=== PATIENT | female | born 1985 | race Caucasian/White ===

== ENCOUNTER → 2025-01-22 10:51 | Outpatient (CLI) | payer BC, SELFPAY ==
--- NOTE | 2025-01-22 10:54 | DI.RAD.S_ITS ---
PROCEDURE: XR TOE LT MIN 2V INDICATIONS: Rule out fracture TECHNIQUE: 4 views of the 5th toe(s) acquired. COMPARISON: None. FINDINGS: Bones: Acute oblique fracture involving distal shaft of 5th proximal phalanx with minimal lateral displacement at fracture site. No other fracture or dislocation. Soft tissues: No suspicious soft tissue densities. IMPRESSION: Acute minimally displaced oblique fracture involving distal shaft of 5th proximal phalanx. Dictated by: Owen Anand M.D. on 01/22/2025 at 12:04 Approved by: Owen Anand M.D. on 01/22/2025 at 12:05
== END ==
LOC: RAD 10:53
PROVIDERS: PCP Family Medicine; Referring Provider Family Medicine; Visit Provider Chiropractor
DX: S92.515A Nondisplaced fracture of proximal phalanx of left lesser toe(s), initial encounter for closed fracture (principal); S90.122A Contusion of left lesser toe(s) without damage to nail, initial encounter; X58.XXXA Exposure to other specified factors, initial encounter
CPT/HCPCS: 73660